=== PATIENT | female | born 1980 | race Caucasian/White ===

== ENCOUNTER 2018-06-23 11:47 | Emergency (ER) | payer OTHER, MEDICAID ==
[~2018-06-23] VITALS: Ht 149.9 cm; Wt 49.9 kg
[2018-06-23] MEDS ORDERED: PREDNISONE50 MG PO (12:43)
[2018-06-23] MEDS ORDERED: VENTOLIN HFA 1818 GM INH (12:43)
[2018-06-23] MEDS ORDERED: ZITHROMAX TRI-500 MG PO (12:43)
[2018-06-23 13:09] VITALS: BP 123/75
== END 2018-06-23 13:10 | disposition home or self-care (01) ==
LOC: M.ERS 11:47
DX: J40 Bronchitis, not specified as acute or chronic (principal); F17.210 Nicotine dependence, cigarettes, uncomplicated